=== PATIENT | female | born 1970 | race Two or more races ===

== ENCOUNTER 2024-07-02 16:20 | Emergency (ER) | payer OTHER ==
[~2024-07-02] VITALS: Ht 167.6 cm; Wt 90.9 kg
[2024-07-02] MEDS: KETOROLAC TROMETH 60MG/2ML VIAL IM ONE (20:09)
[2024-07-02] MEDS ORDERED: IBUP-1456 PO (20:52)
[2024-07-02] MEDS ORDERED: METH-1181 PO (20:52)
[2024-07-02 21:10] VITALS: BP 147/95; PULSE 100; RESP 20; TEMP 99; O2SAT 99
== END 2024-07-02 21:26 | disposition home or self-care (01) ==
LOC: ER 16:20 → EDSEX 16:20 → EDBD 16:20 → ER 21:18
DX: S13.4XXA Sprain of ligaments of cervical spine, initial encounter (principal); Z79.1 Long term (current) use of non-steroidal anti-inflammatories (NSAID); V89.2XXA Person injured in unspecified motor-vehicle accident, traffic, initial encounter; Y93.89 Activity, other specified; Y92.89 Other specified places as the place of occurrence of the external cause; Y99.8 Other external cause status
CPT/HCPCS: 72040; 72100; 96372; 99284; J1885